=== PATIENT | female | born 1980 | race Caucasian/White ===

== ENCOUNTER 2016-09-03 10:58 | Emergency (ER) | payer MEDICAID, OTHER ==
[~2016-09-03] VITALS: Ht 157.5 cm; Wt 65.0 kg
[~2016-09-03 10:58] MED LIST: BACTDS PO; CEPH-443 PO; DOCU-144 PO; FER325 PO; HYDR-3498 PO
[2016-09-03 11:19] VITALS: Ht 157.5 cm; Wt 65.0 kg
--- NOTE | 2016-09-03 13:30 | ERA ---
ER Documentation Chief Complaint Date/Time DATE: 09/03/16 TIME: 13:29 Chief Complaint Constipation HPI The patient is a 36-year-old female, presenting to the ER because of constipation for the last couple days. She has similar symptoms previously, denies fever, chills, neck pain, chest pain, dyspnea. He complains of minimal epigastric abdominal discomfort, complains of constipation, denies dysuria, polyuria. She does not smoke or drink Past medical history: None Past surgical history: Breast implant and abdominoplasty ROS All systems reviewed and are negative except as per history of present illness. Medications Home Meds Active Scripts Polyethylene Glycol* (Miralax*) 17 Gm Powd.pack, 17 GM PO DAILY, #7 Prov:PEYTON ECHEVERRIA MD 09/03/16 Mineral Oil* (Fleet* Mineral Oil Enema) 133 Ml Oil, 133 ML NE DAILY Y for CONSTIPATION, #2 ENEMA Prov:PEYTON ECHEVERRIA MD 09/03/16 Bisacodyl* (Dulcolax*) 5 Mg Tablet.dr, 10 MG NE DAILY Y for CONSTIPATION, #10 TAB Prov:PEYTON ECHEVERRIA MD 09/03/16 Ferrous Sulfate* (Ferrous Sulfate*) 325 Mg Tabec, 325 MG PO DAILY for 90 Days, TAB Prov:LOUANN GOMEZ MD 10/02/15 Docusate Sodium* (Colace*) 100 Mg Capsule, 100 MG PO BID, #14 CAP Prov:LOUANN GOMEZ MD 10/02/15 Hydrocodone Bit-Acetaminophen* ([place]*) 5-325 Mg Tab, 1 TAB PO Q4H Y for PAIN LEVEL 6-10 for 10 Days, TAB Prov:LOUANN GOMEZ MD 10/02/15 Sulfamethoxazole-Trimethoprim* (Bactrim* DS) 800-160 Mg Tab, 1 TAB PO BID for 10 Days, TAB Prov:LOUANN GOMEZ MD 10/02/15 Cephalexin* (Keflex*) 500 Mg Capsule, 500 MG PO Q6 for 7 Days, CAP Prov:LOUANN GOMEZ MD 10/02/15 Allergies Allergies: Coded Allergies: No Known Allergy (Unverified , 09/30/15) PMhx/Soc History of Surgery: Yes (tummy tuck and breast augmentation(September 08, 2015), cyst removal 1995) Anesthesia Reaction: No Hx Neurological Disorder: No Hx Respiratory Disorders: No Hx Cardiac Disorders: No Hx Psychiatric Problems: No Hx Miscellaneous Medical Probl: No Hx Alcohol Use: Yes (drinks occassionally ) Hx Substance Use: No Hx Tobacco Use: Yes (smokes when she drinks) Physical Exam Vitals Vital Signs Date Time Temp Pulse Resp B/P Pulse Ox O2 Delivery O2 Flow Rate FiO2 09/03/16 11:19 98.3 64 19 118/69 100 Physical Exam Const: No acute distress. Head: Atraumatic. Eyes: Normal Conjunctiva. ENT: Normal External Ears, Nose and Mouth. Neck: Full range of motion. No meningismus. Resp: Clear to auscultation bilaterally. Cardio: Regular rate and rhythm, no murmurs. Abd: Soft, non distended, normal bowel sounds, minimal epigastric discomfort, no right lower quadrant, right upper quadrant, rigidity, CVA, rebound tenderness Skin: No petechiae or rashes. Back: No midline or flank tenderness. Ext: No cyanosis, or edema. Neur: Awake and alert. No focal deficit Psych: Normal Mood and Affect. Results 24 hrs Laboratory Tests Test 09/03/16 14:53 Bedside Urine Blood Negative Bedside Urine Glucose (UA) Negative Bedside Urine Ketones (LAB) Negative Bedside Urine Leukocyte Esterase (L Trace Bedside Urine Nitrite (LAB) Negative Bedside Urine Protein (LAB) Negative Bedside Urine pH (LAB) 6.0 Procedures/MDM MEDICAL MAKING DECISION: The patient is a 36-year-old female, presenting with constipation. The differential diagnoses considered include but are not limited to cholelithiasis, cholecystitis, cystitis, pancreatitis, hepatitis, gastritis, peptic ulcer disease, gastric ulcer, appendicitis, diverticulitis, cholangitis, choledocholithiasis, partial small bowel obstruction. Departure Diagnosis: Primary Impression: Constipation Condition: Good Comments She was discharged with MiraLAX, Dulcolax suppository, Fleet enema I discussed the findings with the patient. I advised the patient to follow-up with the primary physician in about 1-2 days, sooner if needed and return if any concern. PEYTON ECHEVERRIA MD Sep 03, 2016 13:30
[2016-09-03 14:55] LABS: URINE BLOOD (Dip) POC Negative (NEGATIVE)
[2016-09-03] MEDS ORDERED: FLEETOIL PR (15:19)
[2016-09-03] MEDS ORDERED: POLY17PO6 PO (15:19)
[2016-09-03] MEDS ORDERED: BISA-57 PR (15:19)
== END 2016-09-03 15:59 | disposition home or self-care (01) ==
LOC: FTE 10:58
DX: K59.00 Constipation, unspecified (principal); F17.210 Nicotine dependence, cigarettes, uncomplicated
CPT/HCPCS: 81003; Z7502; 99283

== ENCOUNTER 2016-09-09 09:46 | Emergency (ER) | payer OTHER ==
[~2016-09-09] VITALS: Wt 69.0 kg
[~2016-09-09 09:46] MED LIST changes: +BISA-57 PR; +FLEETOIL PR; +POLY17PO6 PO
--- NOTE | 2016-09-09 11:09 | ERD ---
ER Documentation Chief Complaint Date/Time DATE: 09/09/16 TIME: 11:05 Chief Complaint constipation for 6 days. mild ap. some bleeding with stools. HPI 36-year-old female presents to the emergency room for planes of constipation for more than 8 days. Was seen by her primary care provider last and was prescribed multiple stool softeners. Stated that she is not relieved by her stool softeners. Her last bowel movement was 4 days ago with very minimal hard stools. She also reports that she has mild bleeding to her rectal area due to her constipation. Was told by her primary care provider that she has internal hemorrhoids. She also complains of painful urination for about 3-4 days. She was also advised by her primary care provider to come to the emergency room for CT of the abdomen and pelvis. Denies headache, loss of consciousness, dizziness, blurry vision, changes in vision, photophobia, facial pain, ear pain, throat pain, difficulty swallowing, neck pain, shoulder pain, chest pain, cough, hemoptysis, back pain, loss of appetite, nausea, vomiting, hematochezia, diarrhea, , the possibility of being , bladder and bowel incontinences, extremity weakness, extremity tenderness, numbness or tingling sensation, difficulty walking, recent travel, recent exposure to illness, recent antibiotic use in the last 3 months, fever, chills. Allergy: No known drug allergies. PMH: Denies. Family medical history: Denies. AO LMP: 08/21/2016 Medications: Surgery: Denies. Primary Social History: Not working at this time. Denies smoking, use of alcohol, use of illegal drugs. ROS All systems reviewed and are negative except as per history of present illness. Medications Home Meds Active Scripts Polyethylene Glycol* (Miralax*) 17 Gm Powd.pack, 17 GM PO DAILY, #7 Prov:PEYTON ECHEVERRIA MD 09/03/16 Mineral Oil* (Fleet* Mineral Oil Enema) 133 Ml Oil, 133 ML IN DAILY Y for CONSTIPATION, #2 ENEMA Prov:PEYTON ECHEVERRIA MD 09/03/16 Bisacodyl* (Dulcolax*) 5 Mg Tablet.dr, 10 MG IN DAILY Y for CONSTIPATION, #10 TAB Prov:PEYTON ECHEVERRIA MD 09/03/16 Ferrous Sulfate* (Ferrous Sulfate*) 325 Mg Tabec, 325 MG PO DAILY for 90 Days, TAB Prov:LOUANN GOMEZ MD 10/02/15 Docusate Sodium* (Colace*) 100 Mg Capsule, 100 MG PO BID, #14 CAP Prov:LOUANN GOMEZ MD 10/02/15 Hydrocodone Bit-Acetaminophen* ([place]*) 5-325 Mg Tab, 1 TAB PO Q4H Y for PAIN LEVEL 6-10 for 10 Days, TAB Prov:LOUANN GOMEZ MD 10/02/15 Sulfamethoxazole-Trimethoprim* (Bactrim* DS) 800-160 Mg Tab, 1 TAB PO BID for 10 Days, TAB Prov:LOUANN GOMEZ MD 10/02/15 Cephalexin* (Keflex*) 500 Mg Capsule, 500 MG PO Q6 for 7 Days, CAP Prov:LOUANN GOMEZ MD 10/02/15 Allergies Allergies: Coded Allergies: No Known Allergy (Unverified , 09/30/15) PMhx/Soc History of Surgery: Yes (tummy tuck and breast augmentation(September 08, 2015), cyst removal 1995) Anesthesia Reaction: No Hx Neurological Disorder: No Hx Respiratory Disorders: No Hx Cardiac Disorders: No Hx Psychiatric Problems: No Hx Miscellaneous Medical Probl: No Hx Alcohol Use: Yes (drinks occassionally ) Hx Substance Use: No Hx Tobacco Use: Yes (smokes when she drinks) Smoking Status: Current some day smoker Physical Exam Vitals Vital Signs Date Time Temp Pulse Resp B/P Pulse Ox O2 Delivery O2 Flow Rate FiO2 09/09/16 09:52 98.0 66 20 104/65 99 Physical Exam CONSTITUTIONAL: Well-appearing; well-nourished; in no apparent distress. HEAD: Normocephalic; atraumatic. EYES: Conjunctiva clear, sclera non-icteric, EOM intact. PERRL Ears: Hearing intact. EACs clear, TMs non-bulging, non-inflamed, translucent & mobile, ossicles normal appearance, No obstructions, no erythema, no discharges Nose: No obstructions. No polyps. No external lesions. Mucosa non-inflamed. No external lesions, septum and turbinates normal. No rhinorrhea. No discharges. Frontal sinus is non-tender to palpation. Maxillary sinus is non-tender to palpation. MOUTH: Moist mucous membranes, no lesion, no obstructions, no vesicles, no thrush, patent airway Throat: Uvula in midline. Right tonsil is +1 with no erythema, no exudate. Left tonsil is +1 with no erythema, no exudate. Tolerating secretions well. Good gag reflex. Patent airway. Neck: Supple, without lesions, bruits, or adenopathy. No mass. Thyroid non- enlarged and non-tender to palpation. CHEST: Symmetrical chest. Respirations even and not labored. No retractions noted. CARDIOVASCULAR: Normal S1, S2. RRR. No murmurs, gallops. RESPIRATORY: Normal chest excursion with respiration; breath sounds clear and equal bilaterally; no wheezes, rhonchi, or rales. Breathing even and unlabored. Speaking in clear, full, and complete sentences w/ ease. ABDOMEN: Normal bowel sounds normal. Soft, round, non-distended, non-guarding, no tenderness, no rebound, no organomegaly, no masses, no pulsating abdominal mass. No hernia. No peritoneal signs. Rectal exam: Done with female airport operations crew member named Samantha TAFOYA. External rectal/anal area: No active bleeding. No external hemorrhoids. Internal rectal: No active bleeding. : No CVA tenderness. BACK: Symmetrical shoulder. Spine is midline without deformity, tenderness. No evidence of trauma or deformity. PELVIS: Stable pelvis. No evidence of trauma or deformity. MUSCULOSKELETAL: Normal gait and station. No misalignment, asymmetry, crepitation, defects, tenderness, masses, effusions, decreased range of motion, instability, atrophy or abnormal strength or tone in the head, neck, spine, ribs , pelvis or extremities. No calf tenderness. NEUROVASCULAR: Distal pulses are present. Pedal pulse are present, equal, and normal. Capillary refills are < 2 seconds. NEUROLOGIC: Alert and oriented x4. Speaks full and clear sentences. Cranial Nerves II-XII normal. Sensation to pain, touch, and proprioception normal. Grossly unremarkable. No neurologic deficits. Romberg test is negative. PSYCHOLOGICAL: The patients mood and manner are appropriate. No hallucinations , delusions. Not SI. Not HI. Has the capacity to decide for self SKIN: Normal for age and ethnicity; warm; dry; good turgor; no apparent lesions or exudates. No rashes, hives, discoloration. Intact. Result Diagram: 09/09/16 1125 09/09/16 1125 Results 24 hrs Laboratory Tests Test 09/09/16 11:18 09/09/16 11:25 Urine Color LT. YELLOW Urine Clarity CLEAR Urine pH 7.5 Urine Specific [place] 1.010 Urine Ketones NEGATIVE Urine Nitrite NEGATIVE Urine Bilirubin NEGATIVE Urine Urobilinogen 0.2 E.U./dL Urine Leukocyte Esterase NEGATIVE Urine Hemoglobin NEGATIVE Urine Glucose NEGATIVE% Urine Total Protein NEGATIVE Stool Occult Blood NEGATIVE White Blood Count 8.910^3/ul Red Blood Count 4.3510^6/ul Hemoglobin 10.8g/dl Hematocrit 34.6% Mean Corpuscular Volume 79.5fl Mean Corpuscular Hemoglobin 24.8pg Mean Corpuscular Hemoglobin Concent 31.2g/dl Red Cell Distribution Width 15.8% Platelet Count 07954^3/UL Mean Platelet Volume 10.3fl Neutrophils % 68.4% Lymphocytes % 24.4% Monocytes % 5.7% Eosinophils % 1.0% Basophils % 0.2% Nucleated Red Blood Cells % 0.0/100WBC Neutrophils # 6.110^3/ul Lymphocytes # 2.210^3/ul Monocytes # 0.510^3/ul Eosinophils # 0.110^3/ul Basophils # 0.010^3/ul Nucleated Red Blood Cells # 0.010^3/ul Sodium Level 136mmol/L Potassium Level 4.1mmol/L Chloride Level 98mmol/L Carbon Dioxide Level 32mmol/L Anion Gap 10 Blood Urea Nitrogen 12mg/dl Creatinine 0.53mg/dl Glucose Level 94mg/dl Calcium Level 8.9mg/dl Total Bilirubin 0.2mg/dl Direct Bilirubin 0.00mg/dl Indirect Bilirubin 0.2mg/dl Aspartate Amino Transf (AST/SGOT) 16IU/L Alanine Aminotransferase (ALT/SGPT) 21IU/L Alkaline Phosphatase 52IU/L Total Protein 7.0g/dl Albumin 3.8g/dl Globulin 3.20g/dl Albumin/Globulin Ratio 1.18 Amylase Level 109U/L Lipase 76U/L Current Medications Medications (Trade) Dose Ordered Sig/Leilani Route PRN Reason Start Time Stop Time Status Last Admin Dose Admin IV Flush 10 ml 10 ml STK-MED ONCE .ROUTE 09/09/16 12:24 09/09/16 12:25 DC 09/09/16 12:47 Sodium Chloride (NS) 100 ml @ ud STK-MED ONCE .ROUTE 09/09/16 12:24 09/09/16 12:25 DC 09/09/16 12:47 Iohexol (Omnipaque 300mg/ ml) 150 ml STK-MED ONCE .ROUTE 09/09/16 12:24 09/09/16 12:25 DC 09/09/16 12:47 Procedures/MDM Examination: Please see physical examination. Disease process, medical treatment was explained to the patient and family member. They verbalized understanding and agreed with the diagnostic tests, medical treatment, and follow-up care. Radiology: CT of the abdomen and pelvis with IV contrast. Impression: No CT evidence of mass, lymphadenopathy, or inflammatory change in the abdomen or pelvis. 3.5 cm right adnexal cyst, not unexpected finding in a menopausal female. This can be further evaluated with pelvic ultrasound if clinically indicated. Trace pelvic free fluid, likely physiologic. Blood works: Reviewed. Stool for occult blood: Negative. POC urine : Negative. Urinalysis: Reviewed. Treatment: Re-evaluation: Denies chest pain, back pain, abdominal pain. No nausea and vomiting. Denies rectal bleeding. Unremarkable reexamination of the abdomen. No right upper abdominal pain. No right lower abdominal pain. No peritoneal signs. Ambulatory without difficulty and without pain to abdomen. Consultation: None. Differential diagnosis: Bowel obstruction versus constipation versus internal hemorrhoids versus external hemorrhoids versus gastrointestinal bleeding versus pyelonephritis versus urinary tract infection Medical decision makin-year-old female presents to the emergency room for planes of constipation for more than 8 days. Was seen by her primary care provider last and was prescribed multiple stool softeners. Stated that she is not relieved by her stool softeners. Her last bowel movement was 4 days ago with very minimal hard stools. She also reports that she has mild bleeding to her rectal area due to her constipation. Was told by her primary care provider that she has internal hemorrhoids. She also complains of painful urination for about 3-4 days. She was also advised by her primary care provider to come to the emergency room for CT of the abdomen and pelvis. Patient's complaint, patient's history about her complaint, my physical findings , diagnostic test results, my reevaluation are consistent with my final diagnosis of constipation. Medications prescribed are the following: Mag citrate. Patient and family member are made aware of the side effects and adverse reactions of the medications prescribed. Instructed on when to seek emergent and medical attention in case allergic/anaphylactic reactions or severe side effects and or adverse reactions to medications. Patient and family member verbalized understanding. Patient instructed Instructed to follow-up with his PCP in 24-48 hours. PCP to refer patient to segmental wall installer. Instructed to Call 911 for chest pain, shortness of breath. Advised to come back here in ED as soon as possible for severity of symptoms which includes but not limited to: any new symptoms; shortness of breath/difficulty of breathing; cardiovascular changes; severe gastrointestinal symptoms; signs and symptoms of bleeding and or infection; signs of compartment syndrome/neurovascular changes; neurological changes/deficits. Patient and family member verbalized understanding. Upon discharge, patient is alert and oriented x 4, speaks full and clear sentences, denies pain, has no neurological deficits, has no neurovascular deficits, difficulty of breathing. Breathing even and unlabored. Lung sounds are clear to auscultation. Not in distress. Appears comfortable. Ambulatory with steady gait. Appears satisfied with care provided here in ED. Departure Diagnosis: Primary Impression: Constipation Condition: Good Additional Instructions: Patient instructed Instructed to follow-up with his PCP in 24-48 hours. PCP to refer patient to segmental wall installer. Instructed to Call 911 for chest pain, shortness of breath. Advised to come back here in ED as soon as possible for severity of symptoms which includes but not limited to: any new symptoms; shortness of breath/difficulty of breathing; cardiovascular changes; severe gastrointestinal symptoms; signs and symptoms of bleeding and or infection; signs of compartment syndrome/neurovascular changes; neurological changes/deficits. Patient and family member verbalized understanding. DANIS SALINAS Sep 09, 2016 11:09
[2016-09-09 11:32] LABS: ADD SCAN DIFF NO
[2016-09-09 11:35] LABS: ADD UMIC NO; URINE BILIRUBIN (Dip) NEGATIVE (NEGATIVE); URINE BLOOD (Dip) NEGATIVE (NEGATIVE); URINE COLOR LT. YELLOW (YELLOW); URINE GLUCOSE (Dip) NEGATIVE (NEGATIVE); URINE KETONES (Dip) NEGATIVE (NEGATIVE); URINE LEUKOCYTE ESTERASE (Dip) NEGATIVE (NEGATIVE); URINE NITRITE (Dip) NEGATIVE (NEGATIVE); URINE TOTAL PROTEIN (Dip) NEGATIVE (NEGATIVE); URINE UROBILINOGEN (Dip) 0.2 E.U./dL (0.1-1.0)
[2016-09-09 11:36] LABS: BASOPHILS % 0.2 % (0.0-2.0); EOSINOPHILS # 0.1 10^3/ul (0.0-0.5); HEMATOCRIT 34.6 % (37.0-47.0); HEMOGLOBIN 10.8 g/dl (12.0-16.0); LYMPHOCYTES # 2.2 10^3/ul (0.8-2.9); LYMPHOCYTES % 24.4 % (15.0-51.0); MEAN CORPUSCULAR HEMOGLOBIN 24.8 pg (29.0-33.0); MEAN CORPUSCULAR HGB CONC 31.2 g/dl (32.0-37.0); MEAN CORPUSCULAR VOLUME 79.5 fl (82.0-101.0); MEAN PLATELET VOLUME 10.3 fl (7.4-10.4); MONOCYTE # 0.5 10^3/ul (0.3-0.9); MONOCYTES % 5.7 % (0.0-11.0); NEUTROPHIL # 6.1 10^3/ul (1.6-7.5); NEUTROPHILS % 68.4 % (39.0-77.0); PLATELET COUNT 378 10^3/UL (140-415); RED BLOOD COUNT 4.35 10^6/ul (4.20-5.40); RED CELL DISTRIBUTION WIDTH 15.8 % (11.5-14.5); WHITE BLOOD COUNT 8.9 10^3/ul (4.8-10.8)
[2016-09-09 11:50] LABS: ALBUMIN 3.8 g/dl (3.3-4.9); POTASSIUM 4.1 mmol/L (3.5-5.1)
[2016-09-09 11:53] LABS: ALBUMIN/GLOBULIN RATIO 1.18; BILIRUBIN,INDIRECT 0.2 mg/dl (0-1.1); BILIRUBIN,TOTAL 0.2 mg/dl (0.2-1.3); CREATININE 0.53 mg/dl (0.44-1.00)
[2016-09-09 11:54] LABS: CALCIUM 8.9 mg/dl (8.4-10.2)
[2016-09-09] MEDS ORDERED: SOD CHLORIDE 0.9% 100 ML ONE (12:24)
[2016-09-09] MEDS ORDERED: IOHEXOL 300MG/ML 150 ML BTL ONE (12:24)
--- NOTE | 2016-09-09 12:51 | RADRPT ---
PROCEDURE: CT abdomen and pelvis with contrast. CLINICAL INDICATION: Abdominal pain. Constipation. TECHNIQUE: CT scan of the abdomen and pelvis with contrast was performed on a [facility] The patient was scanned following the uncomplicated intravenous administration 100 cc of Omnipa que 300. Coronal and sagittal reformatted images were obtained from the axial source images. One or more of the following does reduction techniques were used: Automated exposure control; adjustment of the mA and/or kV according to patient size; use of the aorta of reconstruction technique. Images were reviewed on a high-resolution PACS workstation. The total exam CTDI equals 12.85 mGy and the to lucia exam DLP equals 692.85 mGy-cm. COMPARISON: None. FINDINGS: There is minimal patchy left posterior lower lobe subsegmental atelectasis. The heart size is arnulfo l, without pericardial thickening or effusion. The liver, spleen, and pancreas are normal. The gallbladder is normal. The adrenal glands are symmetric and normal. The kidneys show normal and symmetric enhancement. No renal calculus or obstructive uropathy is seen. The aorta is of normal caliber. There is no retroperitoneal lymph node enlargment. There is no evidence of large or small bowel obstruction. A normal appendix is identified. No free f luid or fluid collections are identified. No inflammatory changes are seen. The uterus is present. There is a 3.5 cm right adnexal cyst, not unexpected finding in a premenopau rebecca female. There is no evidence of pelvic sidewall lymph node enlargement. The bladder is within normal limits. There is trace pelvic free fluid. The osseous structures are intact. IMPRESSION: 1. No CT evidence of mass, lymphadenopathy, or inflammatory change in the abdomen or pelvis. 2. 3.5 cm right adnexal cyst, not unexpected finding in a premenopausal female. This can be furthe r evaluated with pelvic ultrasound if clinically indicated. 3. Trace pelvic free fluid, likely physiologic. RPTAT: KK .Bar Elizabeth MD, MD Date Time Electronically viewed and signed by .Bar Elizabeth MD, MD on 09/09/2016 12:51 .B/
[2016-09-09] MEDS ORDERED: MAGN296S40 PO (13:43)
[2016-09-09] MEDS ORDERED: ACET500C5 PO (13:44)
[2016-09-09 14:17] VITALS: BP 110/67; PULSE 67; RESP 18; TEMP 98
== END 2016-09-09 14:17 | disposition home or self-care (01) ==
LOC: FTE 09:46
DX: K59.00 Constipation, unspecified (principal); F17.210 Nicotine dependence, cigarettes, uncomplicated
CPT/HCPCS: 74177; 80053; 81003; 82150; 82270; 83690; 85025; Q9967; Z7610